=== PATIENT | male | born 1940 | race Caucasian/White ===

== ENCOUNTER 2024-08-26 10:20 | Day surgery (SDC) | payer OTHER ==
[~2024-08-26] VITALS: Ht 180.3 cm; Wt 107.0 kg
[~2024-08-26 10:20] MED LIST: IBLOOD GLUCOSE TEST STRIP 1 EA TEST VI PRN; JARDIANCE25 MG PO; LACTATED RINGER'S 1,000 ML IV SCH; LANTUS100 UNITS/ SUB-Q; LIDOCAINE HCL 1% 5 ML SDV INJ ONE; LIPITOR20 MG PO; METFORMIN HCL500 M2 PO; METOPROLOL SUCC25 MG PO; MIDAZOLAM HCL 5 MG/5 ML VIAL IV PRN; OZEMPIC1 MG/0.71 SUB-Q; VITAMIN D350 MCG PO; XARELTO20 MG PO; fentaNYL citrate 100 MCG/2 ML VIAL IV PRN
[2024-08-26 10:53] LABS: BASOPHILS 0.9 % (0.2-1.2); BASOPHILS, ABSOLUTE 0.06 K/uL (0.01-0.08); EOSINOPHILS 12.6 % (0.8-7.0); EOSINOPHILS, ABSOLUTE 0.82 K/uL (0.04-0.54); LYMPHOCYTES 36.3 % (21.8-53.1); MCH 29.9 PG (25.7-32.2); MCHC 32.7 g/dL (32.3-36.5); MCV 91.3 fL (79.0-92.2); MONOCYTES 7.2 % (5.3-12.2); MONOCYTES, ABSOLUTE 0.47 K/uL (0.30-0.82); NEUTROPHILS 42.8 % (34.0-67.9); NEUTROPHILS, ABSOLUTE 2.80 K/uL (1.78-5.38); RBC 4.12 M/uL (4.63-6.08)
[2024-08-26 10:57] VITALS: BP 126/73
[2024-08-26 11:09] LABS: ALT (SGPT) 24.0 U/L (14-59); AST (SGOT) 16.0 U/L (15-37); GLOMERULAR FILTRATION RATE,EST 50.0 mL/min (>60); LACTATE DEHYDROGENASE 115.0 U/L (85-227); PROTEIN, TOTAL 8.1 g/dL (6.4-8.2); UREA NITROGEN 24.0 mg/dL (7-18)
--- NOTE | 2024-08-26 12:27 | NUR ---
08/26/24 1227 Anjelica Rodriguez 1217-PATIENT ARRIVED TO PACU ON 4L NC RR EVEN. PATIENT LAYING PRONE 2 BANDAIDS TO BILATERAL ILIAC CREST CDI. SR HR 70'S. REACTIVE TO VERBAL STIMULI VERY DROWSY. IVF INFUSING. 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 PATIENT REPOSITIONS SELF TO RIGHT SIDE DOZES BACK TO SLEEP. TELEMETRY REMOVED. RA 97% RR EVEN. IVF INFUSING.
[2024-08-26 13:00] VITALS: BP 121/65
[2024-08-27 14:08] LABS: KAPPA QNT FREE LIGHT CHAINS 43.33 mg/L (3.30-19.40); KAPPA/LAMBDA FREE LIGHT CH RAT 3.18 (0.26-1.65); LAMBDA QNT FREE LIGHT CHAINS 13.62 mg/L (5.71-26.30)
[2024-08-28 09:21] LABS: BETA-2-MICROGLOBULIN,SER/PLAS 3.1 mg/L (<=3.0)
[2024-08-31 04:59] LABS: ALPHA 1 GLOBULIN 0.28 g/dL (0.19-0.46); ALPHA 2 GLOBULIN 0.76 g/dL (0.48-1.05); BETA GLOBULIN 2.39 g/dL (0.48-1.10); GAMMA 0.65 g/dL (0.62-1.51); IMMUNOFIXATION REFLEX IFE Done (())
--- NOTE | 2024-09-08 13:31 | PATH ---
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 DIAGNOSIS SUMMARY: Peripheral blood - Mild normocytic normochromic anemia. - Eosinophilia. Bone marrow, aspirate, cell block of clotted aspirate, core biopsy: - Hypercellular bone marrow with increased number of plasma cells consistent with plasma cell. - Negative for increase in blasts or dyshematopoiesis. - Please see diagnostic comment. DIAGNOSTIC COMMENT: Morphologic evaluation of bone marrow demonstrated increased number of plasma cells estimated to comprise up to 10% of bone marrow cellularity. Concurrent flow cytometry analysis also identified monotypic, kappa restricted plasma cells population. 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 Correlation with laboratory testing performed monoclonal protein and radiologic findings will be needed for further classification of this patient's plasma cell dyscrasia/neoplasm. PERIPHERAL BLOOD: Hemogram ([facility], 07/28/2024): WBC 6.53K/UL, RBC 4.12M/UL, hemoglobin 12.3 g/DL, hematocrit 37.6%, MCV 91.3 FL, MCH 29.9 PG, MCHC 32.7 g/DL, RDW SD 46.3 FL, RDW-CV 13.7%, platelets 227K/UL. Peripheral blood differential: 43% neutrophils, 36% lymphocytes, 7% monocytes 13% eosinophils, 1% basophils absolute eosinophils count 0.8K/UL. Review of peripheral blood smear and CBC data demonstrate that the RBCs are decreased in number and are normocytic normochromic with mild anemia present. Mild rouleaux formation is noted. No nucleated RBCs are encountered. The WBCs are normal in number with the PATIENT NAME: SERGIO BATES PATHOLOGY DATE OF : 44 REPORT #: [id number] PHYSICIAN: GABRIELLA ORTIZ PCP: ROBIN WILLARD MD REPORT IS CONFIDENTIAL AND NOT TO BE RELEASED WITHOUT AUTHORIZATION [facility] [address], [place] [address] Signed eosinophilia noted. The eosinophils show unremarkable morphology. The neutrophils show unremarkable morphology with no immature cells/blasts present. The platelets are normal in number and unremarkable in morphology. BONE MARROW: Bone marrow aspirate smears: The bone marrow aspirate smears are adequately cellular for evaluation. 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 There is no increase in blasts present. No dyshematopoiesis is identified. The plasma cells appears to be slightly increased in number and are estimated to comprise up to 10% of marrow cellularity. The megakaryocytes are scattered and appear normal in number and morphology. Bone marrow differential: 1% blasts, 6% promyelocytes, 20% neutrophils, 4% lymphocytes, 13% eosinophils, 10% plasma cells and 45% erythroid. Bone marrow core biopsy and clot section the bone marrow core biopsy demonstrates hypercellular bone marrow for age with an average cellularity of 60%. Trilineage progressive hematopoiesis is present. No increase in blasts is identified. There are no lymphoid aggregates, granulomas or metastatic tumor cells present. Increased number of plasma cells is noted however no large aggregates or clusters identified. The clot section shows similar findings. Special stain: Performed with appropriately reactive controls and show the following results: Iron9 aspirate smear): Absent. Iron (block B): Absent. Reticulin (block A1): No increase in bone marrow reticulin fibrosis. Immunohistochemical stains: Performed on block A1 with appropriately reactive controls and show the following results: CD138: Highlights and confirms increased number of plasma cells (10%). CD34/CD117: Negative for increased number of blasts, 1% CD71: Highlights erythroid precursors. Myeloperoxidase: Highlights myeloid precursors. Factor VIII: Highlights many megakaryocytes. CD138 (block B1): Highlights scattered plasma cells with small aggregate present. FLOW CYTOMETRY: Bone marrow aspirate, flow cytometry: - Monotypic plasma cells are detected. - No atypical B or T-cell population detected. PATIENT NAME: SERGIO BATES PATHOLOGY DATE OF : 44 REPORT #: [id number] PHYSICIAN: GABRIELLA ORTIZ PCP: ROBIN WILLARD MD REPORT IS CONFIDENTIAL AND NOT TO BE RELEASED WITHOUT AUTHORIZATION [address] [address] Signed - No increase in blasts. - See Comment COMMENT: About 11.4% of total events are kappa-restricted monotypic plasma cells. Correlation with clinical and histologic findings is needed for further characterization of this patient's plasma cell dyscrasia. Flow cytometry analysis often underestimates the amount of plasma cells. FLOW CYTOMETRY ANALYSIS: FLOW DIFFERENTIAL (% Total CD45 vs. SSC gating): Myeloid 59%; Lymphoid 14%; Monocyte 2%; Dim CD45/Blast: 0.8%. Cell Count: 7.5 x 10*3/uL. POPULATION ANALYSIS: BLASTS: Analysis of the dim CD45 gate demonstrates 0.8% myeloblasts by CD34/CD117 and 0.4% hematogones. LYMPHOID CELLS: The lymphocyte gate comprises 14% of total events and includes 83% T-cells with a CD4:CD8 ratio of 1.6:1 and normal michelle T-cell antigen expression. 7% of lymphocytes are polyclonal B-cells with a kappa:lambda ratio of 2.0:1. The remainders are NK-cells. MYELOID CELLS: The myeloid population comprises 59% of the total events. No aberrant or immature immunophenotypic expression is detected. MONOCYTES: The monocyte population comprises 2% of the total events. Monocytes are not increased. No aberrant immunophenotypic expression is detected. PLASMA CELLS: There is a noted history of monoclonal gammopathy. For this reason, select additional antibodies are run to further characterize the plasma cells. 11.4% ckappa-restricted plasma cells are detected (e=[id number]) expressing CD45 DIM-NEG (subset DIM), CD56 BR, CD38 BR, CD138 MOD, and cKAPPA MOD while negative for CD19, CD20 and CD117. Initial Antibodies Used: KAPPA, LAMBDA, CD20, CD10, CD19, CD23, CD38, CD16, CD56, CD8, CD5, CD2, CD4, CD7, CD3, CD14, CD33, CD13, HLADR, CD34, CD117, CD15, CD45 Additional Antibodies (necessary for further plasma cell analysis): ckappa, clambda, CD138. Total Antibodies Used: 26. KEW/AMANDA FINAL DIAGNOSIS OF FLOW CYTOMETRY PERFORMED BY: Nanda Oneil MD, Aug 27 2024 4:13PM CYTOGENETICS: Pending FISH ANALYSIS: PATIENT NAME: SERGIO BATES PATHOLOGY DATE OF : 44 REPORT #: [id number] PHYSICIAN: GABRIELLA PATHOLOGY PCP: ROBIN WILLARD MD REPORT IS CONFIDENTIAL AND NOT TO BE RELEASED WITHOUT AUTHORIZATION [facility] [address], [place] [address] Signed Pending GROSS DESCRIPTION: Two specimens are received in two containers A. The specimen, labeled and designated "Neissl, bone marrow-core," is received in formalin and consists of a singular portion of epstein-red bone measuring 0.7 x 0.2 cm. The specimen is submitted for decalcification in Immunocal prior to processing. Entirely submitted in cassette (A1). B. The specimen, labeled and designated "Neissl, bone marrow-aspiration," is received in formalin and consists of a singular portion of clotted blood measuring 1.4 x 0.6 x 0.3 cm. Entirely submitted in cassette (A1). AB (under the direct supervision of a pathologist) The Gross Description was prepared using a voice recognition system. The report was reviewed for accuracy; however, sound-alike word errors, addition and/or deletions may occur. If there is any question about this report, please contact Client Services. ADDITIONAL NOTES: Immunohistochemical and/or in situ hybridization studies if performed in this case included appropriate positive controls that reacted as expected. This test was developed and its performance characteristics determined by [facility]. It has not been cleared or approved by the U.S. Food and Drug Administration. The FDA has determined that such clearance or approval is not necessary. This test is used for clinical purposes. It should not be regarded as investigational or for research. [facility] is certified under the Clinical Laboratory Improvement Amendments of 1988 (CLIA) as qualified to perform high complexity clinical laboratory testing. In this case, certain antibodies were performed by both immunohistochemistry and flow cytometry analysis because flow cytometry analysis did not fully explain all the light microscopic findings. Immunohistochemistry aided in the analysis. Both methods are deemed medically necessary in this case. Immunohistochemical and/or in situ hybridization studies if performed in this case included appropriate positive controls that reacted as expected. This test was developed and its performance characteristics determined by [facility]. It has not been cleared or approved by the U.S. Food and Drug Administration. The FDA has determined that PATIENT NAME: SERGIO BATES PATHOLOGY DATE OF : 44 REPORT #: [id number] PHYSICIAN: MAGDIELRoovyn ANGEL PCP: ROBIN WILLARD MD REPORT IS CONFIDENTIAL AND NOT TO BE RELEASED WITHOUT AUTHORIZATION [facility] [address] [place] [id number] Signed such clearance or approval is not necessary. This test is used for clinical purposes. It should not be regarded as investigational or for research. [facility] is certified under the Clinical Laboratory Improvement Amendments of 1988 (CLIA) as qualified to perform high complexity clinical laboratory testing. PERFORMING LABORATORY: The technical preparation of flow cytometry was performed by [facility], [address] [place] [address] (CLIA#:� [id number]). Professional interpretation was performed by [facility], [address] [place] [address] (CLIA# [id number]). Technical component was performed by [facility], [address] [place] [address] (CLIA# [id number]). Professional interpretation was performed by [facility], [address] [place] [address] (CLIA#: [id number]). IMAGES: A: [id number] A: [id number] ADDITIONAL NOTES: This test was developed and its performance characteristics determined by [facility]� It has not been cleared or approved by the US Food and Drug Administration. The [employer] DNA probe vendor for this study was [employer]. PERFORMING LABORATORY: The technical component of the FISH testing was performed by [facility], [address] [place] [address] (CLIA#:� [id number]). [facility], [address] [place] [phone] (CLIA#: [id number]). IMAGES: A: CCND1-IGH [id number] A: CCND1-IGH 2-3V2-3D8-3F_004 A: [id number] [id number] A: 1P-1Q 3R2G_002 A: 1P-1Q 6R4G_001 A: CEP5-9-15 1-3N5-4C4-4A_001 A: [id number] 1R1G_003 PATIENT NAME: SERGIO BATES PATHOLOGY DATE OF : 44 REPORT #: [id number] PHYSICIAN: GABRIELLA PATHOLOGY PCP: ROBIN WILLARD MD REPORT IS CONFIDENTIAL AND NOT TO BE RELEASED WITHOUT AUTHORIZATION [facility] [address] [facility] [place] [address] Signed FINAL DIAGNOSIS OF FISH ANALYSIS PERFORMED BY: Adin Taylor DO, Sep 04 2024 4:27PM REASON FOR ADDENDUM: To add FISH Analysis Bone marrow aspirate, MM FISH (fluorescence in situ hybridization) RESULT: Detected INTERPRETATION: 1q gain: Detected 1p deletion: Not detected Chromosome 5, 9, or 15 gain: Detected 13q deletion: Detected 17p (p53) deletion: Not detected, Other abnormality Observed (See Below) CCND1/IGH rearrangement t(11;14): Detected Fluorescence in situ hybridization (FISH) analysis was performed using a multiple myeloma specific set of probes. Plasma cell enrichment was performed unless otherwise noted. This study revealed an atypical dual fusion pattern for the CCND1/IGH t(11;14) probe set ([id number], 88%, normal < 3%), a gain of chromosome 5 (3-4A, 22%, normal < 4.6%), gain of chromosome 9 (3-4G, 22%, normal <4.6%), gain of chromosome 15 (3-4R, 22%, normal < 4.6%), a gain of 1q21.2 (CKS1B) (3R2G, 49%, normal <7.4% and 6R4G, 7%), a loss of chromosome 13/monosomy 13 (1R1G, 77%, normal < 7.4%) and gains of chromosome 17 ( 3-4R3-4G, 11%, normal <4.6%). The other analysis fell within normal limits for this sample type. This finding represents an ABNORMAL result. CCND1/IGH gene rearrangement is associated with standard risk in the setting of plasma cell myeloma.� This rearrangement has also been reported as a recurrent abnormality in 50-70% of all mantle cell lymphomas. The atypical (unbalanced signal) pattern is�more often associated with plasma cell myeloma. The extra 1q has been associated with advanced disease and adverse outcome. The loss of the tumor suppressor genes at 13q is a recurrent finding in multiple myeloma patients. Hyperdiploid cell clones are recurrent findings in patients with Multiple Myeloma which constitute a unique genetic subtype of MM associated with improved outcome with distinct clinical features. The most commonly gained chromosomes are 3, 5, 7, 9, 11, 15 and 19. Chromosomal hyperdiploidy is the defining genetic signature in 40-50% of myeloma (MM) patients. Please correlate with clinical and pathologic findings for full assessment. This analysis is not quantitative. Results obtained using CD138+ plasma cells PATIENT NAME: SERGIO BATES PATHOLOGY DATE OF : 44 REPORT #: [id number] PHYSICIAN: GABRIELLA ORTIZ PCP: ROBIN WILLARD MD REPORT IS CONFIDENTIAL AND NOT TO BE RELEASED WITHOUT AUTHORIZATION [facility] [address], [place] [address] Signed are NOT sales training representative of the percentage of abnormal plasma cells in the aspirate. This analysis is limited to abnormalities detectable by the specific probes included in the study. FISH results should be interpreted within the context of a full cytogenetic analysis and hematologic evaluation. ISCN: Probe Set Detail: Chromosome 1: nuc jamir 1p32.3 (VYXE0Hd0),1q21.3(YCG8Rc2)[49/100]/1p32.3 (QARZ7Sx7),1q21.3(RVL3Cz5)[7/100] Chromosome 5: nuc jamir 5p12(XQF9s53)[22/100] Chromosome 9: nuc jamir 9p13.1p13.2(CNC8o46)[22/100] Chromosome 15: nuc jamir 15q11.2(TZN32n82)[22/100] Chromosome 13: nuc jamir 13q14(R65A267c1),13q34(NFIK4d8)[77/100] Chromosome 17: nuc jamir 17p13.1(CX03g67),17p11.2(DFT92v08)[11/100] CCND1/IGH t(11;14): nuc jamir 11q13(EWIG2l79),14q32(IGHx25)(CCND1 con IGHx13)[176/200] References: Challegra WJ, Kera Leyva, et al; International Myeloma Working Group. IMWG consensus on risk stratification in multiple myeloma. Leukemia. 2014;28(2):269-77. Arie R, Regino PL, Oren J, José Miguel J, Steve N, Santana AK, Brayden G, Dejan B, Darshana M, Dilcia S, Jose Juan A, Oniel B, Denise WM, Kiko P, Sabiha F, Sarah-Tayler S, Denis BG, Gelacio R, Kris O, Noelle T, Audie L, Dominique H; International Myeloma Working Group. International Myeloma Working Group molecular classification of multiple myeloma: spotlight review. Leukemia. 2009 Dec;23(12):2210-21. doi: 10.1038/marilee.2009.174. Epub 2008Nov 11. PMID: 79363754; PMCID: SBS8749706. FISH Analysis Summary: Nuclei Scored: 100-200 Scoring Method: Manual; CPT Code 86131 Number of Probe units: 5 Multiplex Cells analyzed: Interphase Probe sets: 13q-/-13, 1p32.3/1q21, 5p12/9p13/15q11, TP53 (17p13.1)/ CEP 17 (17p11), IGH (14q32)/CCND1 (11q13.3) To report results of additional testing. Bone marrow, cytogenetics chromosome analysis: Karyotype: 46,XY[20] Interpretation: NORMAL MALE KARYOTYPE Cytogenetic analysis shows a normal male karyotype in all cells analyzed. PATIENT NAME: SERGIO BATES PATHOLOGY DATE OF : 44 REPORT #: [id number] PHYSICIAN: GABRIELLA PATHOLOGY PCP: ROBIN WILLARD MD REPORT IS CONFIDENTIAL AND NOT TO BE RELEASED WITHOUT AUTHORIZATION [facility] [address], [place] [address] Signed Comments: Standard cytogenetic analysis may not detect subtle submicroscopic rearrangements and may not include metaphases from abnormal cell populations with low mitotic rates or present in low levels. Test Detail: Metaphases Counted: 20 Metaphases Analyzed: 20 Metaphases Karyotyped: 2 Culture Type: 48EB, 72IL4 Banding Technique: GTG Banding Resolution: 400 CPT Codes: 46535, 75639*, 37901, 05450 *Professional interpretation service generally billed directly to carriers by [facility]. Two cultures were performed; stimulated and non-stimulated. The Accessioning Component and Technical Component Processing of this test was completed at [facility] [place], [address] [place] [address] / [address] / [phone] / CLIA # [id number] / Battalion Chief(s): Adama Jaramillo M.D. The Technical Component Analysis of this test was completed at [facility] [place] [address] [facility] [address], [place] / [address] / [phone] / CLIA # [id number] / Battalion Chief(s): Dr. Raimundo Wiggins. The Professional Component of this test was completed at [facility] , [address] [place] [address] / [phone] / [phone] / CLIA # [id number] / Battalion Chief(s): Ruthann Veloz MD and [facility], [address] [place] [address], [address], [place] / [address] / [phone] / CLIA # [id number] / Battalion Chief(s): Jessie Sadler M.D. Analysis Code(s): [id number], [id number] Interpretation Code(s): 63818542 (Accession / CaseNo: [id number] / [id number]) The performance characteristics of this test have been determined by the performing laboratory. This test has not been approved by the FDA. The FDA has determined such clearance or approval is not necessary. This laboratory is CLIA certified to perform high complexity clinical testing. Images that may be included within this report are sales training representative of the patient but not all testing in its entirety and should not be used to render a result. The CPT codes provided with our test descriptions are based on AMA guidelines and are for informational purposes only. Correct CPT coding is the sole responsibility of the billing libertarian. Please direct PATIENT NAME: SERGIO BATES [facility] DATE OF : 44 REPORT #: [id number] PHYSICIAN: GABRIELLA PATHOLOGY PCP: ROBIN WILLARD MD REPORT IS CONFIDENTIAL AND NOT TO BE RELEASED WITHOUT AUTHORIZATION [facility] [address] [place] [address] [place], [place] [address] Signed any questions regarding coding to the payer being billed. Diagnostician: Nanda Oneil MD Pathologist Diagnostician: Dani Landaverde MD Pathologist Electronically Signed 09/08/2024 Copies: ~ PATIENT NAME: SERGIO BATES [facility] DATE OF : 44 REPORT #: [id number] PHYSICIAN: GABRIELLA PATHOLOGY PCP: ROBIN WILLARD MD REPORT IS CONFIDENTIAL AND NOT TO BE RELEASED WITHOUT AUTHORIZATION
== END 2024-08-26 13:05 | disposition home or self-care (01) ==
LOC: OPS 10:20 → DS 10:20 → OPS 12:00
PROVIDERS: ATTEND Specialist
PROC: 079T3ZX Drainage of Bone Marrow, Percutaneous Approach, Diagnostic (ICD-10-PCS; principal; 2024-08-26 12:00)
DX: D47.2 Monoclonal gammopathy (principal); D72.10 Eosinophilia, unspecified; E11.22 Type 2 diabetes mellitus with diabetic chronic kidney disease; I12.9 Hypertensive chronic kidney disease with stage 1 through stage 4 chronic kidney disease, or unspecified chronic kidney disease; N18.9 Chronic kidney disease, unspecified; D63.1 Anemia in chronic kidney disease; J45.909 Unspecified asthma, uncomplicated; E78.5 Hyperlipidemia, unspecified; Z95.0 Presence of cardiac pacemaker; Z79.4 Long term (current) use of insulin; Z79.84 Long term (current) use of oral hypoglycemic drugs; Z79.85 Long-term (current) use of injectable non-insulin antidiabetic drugs; Z79.899 Other long term (current) drug therapy; Z88.5 Allergy status to narcotic agent
CPT/HCPCS: 01112; 36415; 80053; 82232; 83615; 85025; J2704; J7121